=== PATIENT | female | born 1980 | race Caucasian/White ===

== ENCOUNTER 2016-11-13 11:24 | Emergency (ER) | payer OTHER ==
[~2016-11-13] VITALS: Ht 170.2 cm; Wt 200.6 kg
[~2016-11-13 11:24] MED LIST: CRESTOR5 MG PO; DAILY VITAMIN1 EAC8 PO; DILANTIN100 MG PO; FLEXERIL10 MG PO; GABITRIL4 MG PO; GLUCOPHAGE500 MG PO; HYDROCODON-ACE1 EAC7 PO; KEFLEX500 MG PO; KEPPRA1000 MG; KLONOPIN1 MG PO; Keppra PO; LAMICTAL XR200 MG PO; LAMICTAL100 MG PO; LAMICTAL150 M1 PO; LAMICTAL200 MG PO; LIPITOR10 MG PO; LIPITOR20 MG PO; LISINOPRIL10 MG PO; LISINOPRIL20 MG PO; LOPRESSOR100 M1 PO; LaMICtal PO; METFORMIN HCL500 MG PO; METOPROLOL PO; MONTELUKAST SOD10 MG PO; MOTRIN800 MG PO; NITROGLYCERIN0.4 MG SL; NORCO 5/3251 TABLET PO; NORETHINDRONE AC5 MG PO; NORTRIPTYLINE H50 MG PO; OMEPRAZOLE40 M1 PO; PEPCID20 MG PO; PERCOCET 5/31 TABLET PO; PREDNISONE20 MG PO; PROAIR HFA8.5 GM IH; SYNTHROID50 MCG PO; TESSALON PERLE100 MG PO; TOPAMAX50 MG PO; TOPROL XL100 MG PO; TROKENDI XR100 MG PO; TROKENDI XR50 MG PO; VITAMIN D PO; ZESTRIL,PRINIVI20 MG PO; ZESTRIL10 MG PO; ZITHROMAX250 MG PO; ZOFRAN ODT8 MG PO; ZYRTEC10 M2 PO
[2016-11-13 12:59] LABS: ADD MIUA? YES; BILIRUBIN NEGATIVE; BLOOD NEGATIVE; COLOR YELLOW ((YELLOW)); GLUCOSE (STRIP) NEGATIVE; KETONES NEGATIVE; LEUKOCYTES TRACE; NITRITE NEGATIVE; PROTEIN (STRIP) NEGATIVE; SPECIFIC GRAVITY 1.019 (1.000-1.030); UROBILINOGEN 0.2 MG/DL (0.2-1.0)
[2016-11-13 13:12] LABS: HEMATOCRIT 43.7 % (36.0-46.0); MCH 28.1 PG (29.0-34.0); MCV 85.4 FL (83-99); MEAN PLAT.VOLUME 10.2 uM^3 (9.5-12.4); PLATELET COUNT 165 K/uL (156-360); RBC DIS.WIDTH-SD 39.7 % (39-53); RED BLOOD COUNT 5.12 M/uL (3.80-5.20); WHITE BLOOD COUNT 4.5 K/uL (4.1-10.2)
[2016-11-13 13:13] LABS: BACTERIA NONE SEEN /HPF; EPITHELIAL CELLS 1+ /HPF; MUCUS TRACE /LPF; RED BLOOD CELLS 0-5 /HPF (0-5); UCUL ADDED? NO
[2016-11-13 13:29] LABS: CHLORIDE 106 mEq/L (99-109); POTASSIUM 4.4 mEq/L (3.7-5.4); SODIUM 140 mEq/L (136-147)
[2016-11-13 13:31] LABS: GLUCOSE 112 mg/dL (70-99)
[2016-11-13 13:32] LABS: ANION GAP 9 MEQ/L (2-14)
[2016-11-13 13:33] LABS: TOTAL BILIRUBIN 0.4 mg/dL (0.0-1.0)
[2016-11-13 13:34] LABS: ALKALINE PHOSPHATASE 98 IU/L (3-129)
[2016-11-13 13:35] LABS: GFR ESTIMATE (CALCULATED) > 59 mL/min/
[2016-11-13 13:36] LABS: UREA NITROGEN (BUN) 12 mg/dL (9-23)
[2016-11-13 13:44] LABS: QUANTITATIVE HCG < 4.0 MIU/ML
[2016-11-13 14:05] LABS: LIPASE 15 U/L (1.0-51.0)
[2016-11-13] MEDS ORDERED: ZOFRAN ODT4 MG PO (15:58)
[2016-11-13] MEDS ORDERED: NORCO 5/3251 TABLET PO (15:58)
[2016-11-13 16:46] VITALS: BP 167/84
== END 2016-11-13 16:47 | disposition home or self-care (01) ==
LOC: EME 11:24
DX: K80.20 Calculus of gallbladder without cholecystitis without obstruction (principal); E66.01 Morbid (severe) obesity due to excess calories; Z68.44 Body mass index [BMI] 60.0-69.9, adult; J45.909 Unspecified asthma, uncomplicated; E11.9 Type 2 diabetes mellitus without complications; E78.5 Hyperlipidemia, unspecified; I10 Essential (primary) hypertension; G40.909 Epilepsy, unspecified, not intractable, without status epilepticus; Z79.84 Long term (current) use of oral hypoglycemic drugs
CPT/HCPCS: 74177; 80053; 81003; 83690; 84702; 85027; 93005; 99281; 99285; J1885; J2405; J7030

== ENCOUNTER 2017-01-06 21:04 | Emergency (ER) | payer OTHER ==
[~2017-01-06] VITALS: Ht 170.2 cm; Wt 199.3 kg
[~2017-01-06 21:04] MED LIST changes: +ZOFRAN ODT4 MG PO
[2017-01-06 22:12] LABS: HEMATOCRIT 43.4 % (36.0-46.0); MCHC 31.8 G/DL (30.0-36.0); MEAN PLAT.VOLUME 9.9 uM^3 (9.5-12.4); PLATELET COUNT 185 K/uL (156-360); RBC DIS.WIDTH-CV 13.3 % (11.8-14.6); RBC DIS.WIDTH-SD 43.1 % (39-53); RED BLOOD COUNT 4.93 M/uL (3.80-5.20)
[2017-01-06 22:21] LABS: CHLORIDE 104 mEq/L (99-109); POTASSIUM 4.4 mEq/L (3.7-5.4); SODIUM 138 mEq/L (136-147)
[2017-01-06 22:23] LABS: GLUCOSE 108 mg/dL (70-99)
[2017-01-06 22:24] LABS: ANION GAP 10 MEQ/L (2-14)
[2017-01-06 22:25] LABS: TOTAL BILIRUBIN 0.3 mg/dL (0.0-1.0)
[2017-01-06 22:27] LABS: ALKALINE PHOSPHATASE 78 IU/L (3-129); GFR ESTIMATE (CALCULATED) > 59 mL/min/
[2017-01-06 22:28] LABS: UREA NITROGEN (BUN) 11 mg/dL (9-23)
[2017-01-06 22:30] LABS: LIPASE 27 U/L (1.0-51.0)
[2017-01-06 22:38] LABS: QUANTITATIVE HCG < 4.0 MIU/ML
[2017-01-07 00:31] LABS: ADD MIUA? YES; BILIRUBIN NEGATIVE; BLOOD NEGATIVE; COLOR YELLOW ((YELLOW)); GLUCOSE (STRIP) NEGATIVE; KETONES NEGATIVE; LEUKOCYTES MODERATE; NITRITE NEGATIVE; PROTEIN (STRIP) 30; SPECIFIC GRAVITY 1.028 (1.000-1.030); UROBILINOGEN 0.2 MG/DL (0.2-1.0)
[2017-01-07] MEDS ORDERED: ZOFRAN ODT4 MG PO (00:46)
[2017-01-07] MEDS ORDERED: NORCO 5/3251 TABLET PO (00:46)
[2017-01-07 00:47] LABS: EPITHELIAL CELLS 3+ /HPF; MUCUS RARE /LPF; RED BLOOD CELLS RARE /HPF (0-5); WHITE BLOOD CELLS 20-30 /HPF (0-5)
[2017-01-07 00:48] LABS: BACTERIA 2+ /HPF; CASTS NONE SEEN /LPF; CRYSTALS PRESENT; UCUL ADDED? YES
[2017-01-07 00:49] LABS: CALCIUM OXALATE CRYSTALS 1+ /HPF
[2017-01-07 01:09] VITALS: BP 116/59
== END 2017-01-07 01:14 | disposition home or self-care (01) ==
LOC: RME 21:04 → EME 21:04 → RME 01-07 01:14
DX: K80.20 Calculus of gallbladder without cholecystitis without obstruction (principal); K62.5 Hemorrhage of anus and rectum; J45.909 Unspecified asthma, uncomplicated; E11.9 Type 2 diabetes mellitus without complications; I10 Essential (primary) hypertension; Z79.84 Long term (current) use of oral hypoglycemic drugs; Z91.040 Latex allergy status
CPT/HCPCS: 76705; 80053; 81003; 83690; 84702; 85027; 87086; 99281; 99285

== ENCOUNTER 2017-01-10 19:49 | Emergency (ER) | payer OTHER ==
[~2017-01-10] VITALS: Ht 170.2 cm; Wt 196.6 kg
[2017-01-10 21:25] LABS: HEMATOCRIT 44.6 % (36.0-46.0); MCH 28.6 PG (29.0-34.0); MCHC 32.7 G/DL (30.0-36.0); MCV 87.3 FL (83-99); MEAN PLAT.VOLUME 9.7 uM^3 (9.5-12.4); PLATELET COUNT 179 K/uL (156-360); RBC DIS.WIDTH-CV 13.2 % (11.8-14.6); RBC DIS.WIDTH-SD 42.1 % (39-53); RED BLOOD COUNT 5.11 M/uL (3.80-5.20); WHITE BLOOD COUNT 6.3 K/uL (4.1-10.2)
[2017-01-10 21:35] LABS: CHLORIDE 102 mEq/L (99-109); POTASSIUM 4.6 mEq/L (3.7-5.4); SODIUM 140 mEq/L (136-147)
[2017-01-10 21:37] LABS: GLUCOSE 94 mg/dL (70-99)
[2017-01-10 21:38] LABS: ANION GAP 11 MEQ/L (2-14)
[2017-01-10 21:41] LABS: ALKALINE PHOSPHATASE 82 IU/L (3-129); GFR ESTIMATE (CALCULATED) > 59 mL/min/; TOTAL BILIRUBIN 0.5 mg/dL (0.0-1.0)
[2017-01-10 21:42] LABS: UREA NITROGEN (BUN) 8 mg/dL (9-23)
[2017-01-10 21:43] LABS: DIRECT BILIRUBIN 0.3 mg/dL (0.0-0.3)
[2017-01-10 21:44] LABS: LIPASE 13 U/L (1.0-51.0)
[2017-01-10] MEDS ORDERED: MIRALAX255 GM PO (22:15)
[2017-01-10 22:30] VITALS: BP 177/99
[2017-01-11] MEDS ORDERED: ATORVASTATIN CA20 MG PO (22:38)
[2017-01-11] MEDS ORDERED: TYLENOL EXTRA500 MG PO (22:38)
[2017-01-11] MEDS ORDERED: ONE-A-DAY ESSE1 EAC1 PO (22:38)
== END 2017-01-10 22:31 | disposition home or self-care (01) ==
LOC: EME 19:49
PROVIDERS: Emergency Medicine
DX: K59.00 Constipation, unspecified (principal); R10.84 Generalized abdominal pain; J45.909 Unspecified asthma, uncomplicated; E11.9 Type 2 diabetes mellitus without complications; E78.5 Hyperlipidemia, unspecified; I10 Essential (primary) hypertension; G40.909 Epilepsy, unspecified, not intractable, without status epilepticus; Z79.84 Long term (current) use of oral hypoglycemic drugs
CPT/HCPCS: 74176; 80048; 80076; 81003; 83690; 85027; 99281; 99284

== ENCOUNTER 2017-01-11 18:57 | Inpatient (IN) | payer OTHER ==
[~2017-01-11] VITALS: Ht 170.2 cm; Wt 196.0 kg
[~2017-01-11 18:57] MED LIST changes: +MIRALAX255 GM PO
[2017-01-11 20:44] LABS: HEMATOCRIT 43.8 % (36.0-46.0); MCH 28.9 PG (29.0-34.0); MCHC 33.3 G/DL (30.0-36.0); MCV 86.6 FL (83-99); MEAN PLAT.VOLUME 9.8 uM^3 (9.5-12.4); PLATELET COUNT 181 K/uL (156-360); RBC DIS.WIDTH-CV 13.1 % (11.8-14.6); RBC DIS.WIDTH-SD 40.4 % (39-53); RED BLOOD COUNT 5.06 M/uL (3.80-5.20)
[2017-01-11 20:54] LABS: CHLORIDE 102 mEq/L (99-109); SODIUM 136 mEq/L (136-147)
[2017-01-11 20:55] LABS: POTASSIUM 5.6 mEq/L (3.7-5.4)
[2017-01-11 20:56] LABS: GLUCOSE 100 mg/dL (70-99)
[2017-01-11 20:57] LABS: ANION GAP 11 MEQ/L (2-14)
[2017-01-11 20:59] LABS: ALKALINE PHOSPHATASE 84 IU/L (3-129); TOTAL BILIRUBIN 0.7 mg/dL (0.0-1.0)
[2017-01-11 21:00] LABS: GFR ESTIMATE (CALCULATED) > 59 mL/min/
[2017-01-11 21:01] LABS: UREA NITROGEN (BUN) 8 mg/dL (9-23)
[2017-01-11 21:03] LABS: LIPASE 8 U/L (1.0-51.0)
[2017-01-11 21:09] LABS: QUANTITATIVE HCG < 4.0 MIU/ML
[2017-01-11] MEDS ORDERED: ATORVASTATIN CA20 MG PO (22:38)
[2017-01-11] MEDS ORDERED: ONE-A-DAY ESSE1 EAC1 PO (22:38)
[2017-01-11] MEDS ORDERED: TYLENOL EXTRA500 MG PO (22:38)
[2017-01-12] VITALS (7 sets, daily range): BP systolic 101–145; BP diastolic 54–90
[2017-01-12 06:42] LABS: ADD MIUA? YES; BILIRUBIN NEGATIVE; BLOOD MODERATE; COLOR YELLOW ((YELLOW)); GLUCOSE (STRIP) NEGATIVE; KETONES NEGATIVE; LEUKOCYTES TRACE; NITRITE NEGATIVE; PROTEIN (STRIP) 30; SPECIFIC GRAVITY 1.014 (1.000-1.030); UROBILINOGEN 0.2 MG/DL (0.2-1.0)
[2017-01-12 08:22] LABS: EPITHELIAL CELLS 1+ /HPF; MUCUS 2+ /LPF; RED BLOOD CELLS 0-5 /HPF (0-5)
[2017-01-12 08:23] LABS: BACTERIA NONE SEEN /HPF; UCUL ADDED? NO
[2017-01-12 08:51] LABS: EOSINOPHIL (%) 0 % (0-5); HEMATOCRIT 39.9 % (36.0-46.0); IMMATURE GRANULOCYTE (%) 0.8 % (0.0-0.7); INSTRUMENT ABS NEUTROPHIL CT 3.3 K/uL; LYMPHOCYTE COUNT 1.6 K/uL (1.0-2.8); MCH 28.8 PG (29.0-34.0); MCHC 32.6 G/DL (30.0-36.0); MCV 88.5 FL (83-99); MEAN PLAT.VOLUME 9.6 uM^3 (9.5-12.4); MONOCYTE (%) 7.2 % (3-12); MONOCYTE COUNT 0.4 K/uL (0-0.8); NEUTROPHIL (%) 61.4 % (45-76); NEUTROPHIL COUNT 3.3 K/uL (1.8-6.4); PLATELET COUNT 160 K/uL (156-360); RBC DIS.WIDTH-CV 13.2 % (11.8-14.6); RBC DIS.WIDTH-SD 42.7 % (39-53); RED BLOOD COUNT 4.51 M/uL (3.80-5.20); WHITE BLOOD COUNT 5.3 K/uL (4.1-10.2)
[2017-01-12 09:10] LABS: ANION GAP 9 MEQ/L (2-14); CHLORIDE 102 MEQ/L (99-109); GFR ESTIMATE (CALCULATED) > 59 mL/min/; GLUCOSE 108 mg/dL (70-99); SAMPLE HEMOLYSIS CHECK 0; SAMPLE ICTERIC CHECK 0; SAMPLE LIPEMIA CHECK 0; SODIUM 139 MEQ/L (136-147); UREA NITROGEN (BUN) 12 mg/dL (9-23)
[2017-01-12 09:12] LABS: POTASSIUM 4.4 MEQ/L (3.7-5.4)
[2017-01-12 10:24] LABS: ALKALINE PHOSPHATASE 70 IU/L (3-129); DIRECT BILIRUBIN 0.2 mg/dL (0.0-0.3); TOTAL BILIRUBIN 0.6 MG/DL (0.0-1.0)
[2017-01-12] MEDS ORDERED: OMEPRAZOLE40 M1 PO (14:22)
[2017-01-12] MEDS ORDERED: COLACE100 MG PO (14:26)
[2017-01-12] MEDS ORDERED: DULCOLAX10 MG PO (14:26)
[2017-01-12 18:00] LABS: POINT-OF-CARE METER ID UU13113831
[2017-01-13 03:42] VITALS: BP 119/61
[2017-01-13 06:51] LABS: POINT-OF-CARE METER ID UU14162508
[2017-01-13 08:00] VITALS: BP 126/68
[2017-01-13 08:24] LABS: EOSINOPHIL (%) 0.2 % (0-5); IMMATURE GRANULOCYTE (%) 0.4 % (0.0-0.7); INSTRUMENT ABS NEUTROPHIL CT 2.5 K/uL; LYMPHOCYTE COUNT 1.8 K/uL (1.0-2.8); MCH 28.9 PG (29.0-34.0); MCHC 31.9 G/DL (30.0-36.0); MCV 90.7 FL (83-99); MEAN PLAT.VOLUME 9.6 uM^3 (9.5-12.4); MONOCYTE (%) 6.2 % (3-12); MONOCYTE COUNT 0.3 K/uL (0-0.8); NEUTROPHIL (%) 54.2 % (45-76); NEUTROPHIL COUNT 2.5 K/uL (1.8-6.4); PLATELET COUNT 136 K/uL (156-360); RBC DIS.WIDTH-CV 13.2 % (11.8-14.6); RBC DIS.WIDTH-SD 44.1 % (39-53); RED BLOOD COUNT 4.08 M/uL (3.80-5.20); WHITE BLOOD COUNT 4.5 K/uL (4.1-10.2)
[2017-01-13 08:47] LABS: ANION GAP 7 MEQ/L (2-14); CHLORIDE 107 MEQ/L (99-109); GFR ESTIMATE (CALCULATED) > 59 mL/min/; GLUCOSE 91 mg/dL (70-99); POTASSIUM 4.2 MEQ/L (3.7-5.4); SAMPLE HEMOLYSIS CHECK 0; SAMPLE ICTERIC CHECK 0; SAMPLE LIPEMIA CHECK 0; SODIUM 142 MEQ/L (136-147); UREA NITROGEN (BUN) 11 mg/dL (9-23)
[2017-01-13 10:01] LABS: QUANTITATIVE HCG < 4.0 MIU/ML
[2017-01-13 16:00] VITALS: BP 116/67
[2017-01-13 21:19] LABS: POINT-OF-CARE METER ID UU14162508
[2017-01-14] VITALS: BP 119/56
[2017-01-14 06:28] LABS: POINT-OF-CARE METER ID UU14162508
[2017-01-14 08:36] VITALS: BP 108/59
[2017-01-14 16:23] VITALS: BP 127/56
[2017-01-14 23:32] VITALS: BP 125/65
[2017-01-15 06:38] LABS: POINT-OF-CARE METER ID UU14162508
[2017-01-15 07:45] VITALS: BP 129/75
[2017-01-15 15:45] VITALS: BP 122/65
[2017-01-15 20:49] VITALS: BP 118/57
[2017-01-16 00:21] VITALS: BP 148/80
[2017-01-16 07:42] VITALS: BP 106/55
[2017-01-16 11:24] VITALS: BP 107/56
[2017-01-16 12:30] LABS: POINT-OF-CARE METER ID UU14162508
[2017-01-16 15:50] VITALS: BP 103/54
[2017-01-16 17:19] LABS: POINT-OF-CARE METER ID UU14162508
[2017-01-16 21:25] LABS: POINT-OF-CARE METER ID UU14162508
[2017-01-16 23:53] VITALS: BP 104/71
[2017-01-17 00:50] LABS: C DIFF TOXIN NEGATIVE (NEGATIVE)
[2017-01-17 00:57] LABS: PROBE CHECK PASS; SPECIMEN PROCESSING CONTROL PASS
[2017-01-17 07:21] LABS: EOSINOPHIL (%) 0 % (0-5); HEMATOCRIT 34.6 % (36.0-46.0); IMMATURE GRANULOCYTE (%) 0.7 % (0.0-0.7); INSTRUMENT ABS NEUTROPHIL CT 1.5 K/uL; LYMPHOCYTE COUNT 1.2 K/uL (1.0-2.8); MCH 28.6 PG (29.0-34.0); MCHC 32.4 G/DL (30.0-36.0); MCV 88.3 FL (83-99); MEAN PLAT.VOLUME 10.1 uM^3 (9.5-12.4); MONOCYTE (%) 4.3 % (3-12); MONOCYTE COUNT 0.1 K/uL (0-0.8); NEUTROPHIL (%) 53.5 % (45-76); NEUTROPHIL COUNT 1.5 K/uL (1.8-6.4); PLATELET COUNT 139 K/uL (156-360); RBC DIS.WIDTH-CV 13.5 % (11.8-14.6); RBC DIS.WIDTH-SD 42.6 % (39-53); RED BLOOD COUNT 3.92 M/uL (3.80-5.20)
[2017-01-17 07:22] LABS: WHITE BLOOD COUNT 2.8 K/uL (4.1-10.2)
[2017-01-17 07:44] VITALS: BP 100/66
[2017-01-17 08:48] LABS: ANION GAP 6 MEQ/L (2-14); CHLORIDE 109 MEQ/L (99-109); GFR ESTIMATE (CALCULATED) > 59 mL/min/; GLUCOSE 85 mg/dL (70-99); POTASSIUM 3.8 MEQ/L (3.7-5.4); SAMPLE HEMOLYSIS CHECK 0; SAMPLE ICTERIC CHECK 0; SAMPLE LIPEMIA CHECK 0; SODIUM 142 MEQ/L (136-147); UREA NITROGEN (BUN) 4 mg/dL (9-23)
[2017-01-17 10:56] VITALS: BP 118/71
[2017-01-17 16:00] VITALS: BP 120/77
[2017-01-17 19:23] VITALS: BP 153/72
[2017-01-17 21:36] LABS: POINT-OF-CARE METER ID UU14162508
[2017-01-17 23:49] VITALS: BP 148/70
[2017-01-18 06:26] LABS: EOSINOPHIL (%) 0 % (0-5); HEMATOCRIT 33.4 % (36.0-46.0); INSTRUMENT ABS NEUTROPHIL CT 1.8 K/uL; LYMPHOCYTE COUNT 1.2 K/uL (1.0-2.8); MCH 28.2 PG (29.0-34.0); MCHC 31.7 G/DL (30.0-36.0); MCV 88.8 FL (83-99); MEAN PLAT.VOLUME 10.6 uM^3 (9.5-12.4); MONOCYTE (%) 5.4 % (3-12); MONOCYTE COUNT 0.2 K/uL (0-0.8); NEUTROPHIL (%) 56.2 % (45-76); NEUTROPHIL COUNT 1.8 K/uL (1.8-6.4); PLATELET COUNT 124 K/uL (156-360); RBC DIS.WIDTH-CV 13.6 % (11.8-14.6); RBC DIS.WIDTH-SD 43.7 % (39-53); RED BLOOD COUNT 3.76 M/uL (3.80-5.20); WHITE BLOOD COUNT 3.1 K/uL (4.1-10.2)
[2017-01-18 06:32] LABS: POINT-OF-CARE METER ID UU14162508
[2017-01-18 07:01] LABS: ANION GAP 7 MEQ/L (2-14); CHLORIDE 109 MEQ/L (99-109); GFR ESTIMATE (CALCULATED) > 59 mL/min/; GLUCOSE 81 mg/dL (70-99); POTASSIUM 3.8 MEQ/L (3.7-5.4); SAMPLE HEMOLYSIS CHECK 0; SAMPLE ICTERIC CHECK 0; SAMPLE LIPEMIA CHECK 0; SODIUM 141 MEQ/L (136-147); UREA NITROGEN (BUN) 3 mg/dL (9-23)
[2017-01-18 10:01] VITALS: BP 134/78
[2017-01-18 16:20] VITALS: BP 135/76
[2017-01-18 19:51] VITALS: BP 129/67
[2017-01-18 23:50] VITALS: BP 125/65
[2017-01-19 06:39] LABS: POINT-OF-CARE METER ID UU14162508
[2017-01-19 07:30] VITALS: BP 135/75
[2017-01-19 11:46] LABS: POINT-OF-CARE METER ID UU14162508
[2017-01-19 16:14] VITALS: BP 132/69
[2017-01-19 16:27] LABS: POINT-OF-CARE METER ID UU14162508
[2017-01-19 23:06] VITALS: BP 142/76
[2017-01-20 03:10] VITALS: BP 121/58
[2017-01-20 07:05] VITALS: BP 126/67
[2017-01-20 07:26] LABS: POINT-OF-CARE METER ID UU14162508
[2017-01-20 11:25] VITALS: BP 131/73
[2017-01-20 14:55] VITALS: BP 133/77
[2017-01-21 00:30] VITALS: BP 142/70
[2017-01-21 07:17] LABS: EOSINOPHIL (%) 0 % (0-5); HEMATOCRIT 33.5 % (36.0-46.0); IMMATURE GRANULOCYTE (%) 0.6 % (0.0-0.7); INSTRUMENT ABS NEUTROPHIL CT 1.9 K/uL; MCH 28.5 PG (29.0-34.0); MCHC 32.2 G/DL (30.0-36.0); MCV 88.4 FL (83-99); MEAN PLAT.VOLUME 9.9 uM^3 (9.5-12.4); MONOCYTE (%) 7.1 % (3-12); MONOCYTE COUNT 0.2 K/uL (0-0.8); NEUTROPHIL (%) 61.1 % (45-76); NEUTROPHIL COUNT 1.9 K/uL (1.8-6.4); PLATELET COUNT 133 K/uL (156-360); RBC DIS.WIDTH-CV 13.8 % (11.8-14.6); RBC DIS.WIDTH-SD 43.6 % (39-53); RED BLOOD COUNT 3.79 M/uL (3.80-5.20); WHITE BLOOD COUNT 3.1 K/uL (4.1-10.2)
[2017-01-21 07:43] LABS: ANION GAP 7 MEQ/L (2-14); CHLORIDE 108 MEQ/L (99-109); GFR ESTIMATE (CALCULATED) > 59 mL/min/; GLUCOSE 89 mg/dL (70-99); POTASSIUM 3.8 MEQ/L (3.7-5.4); SAMPLE HEMOLYSIS CHECK 0; SAMPLE ICTERIC CHECK 0; SAMPLE LIPEMIA CHECK 0; SODIUM 143 MEQ/L (136-147); UREA NITROGEN (BUN) 3 mg/dL (9-23)
[2017-01-21 07:47] VITALS: BP 138/78
[2017-01-21 10:30] VITALS: BP 133/60
[2017-01-21 15:37] LABS: POINT-OF-CARE METER ID UU13113675
[2017-01-21 17:05] VITALS: BP 172/84
[2017-01-21 19:32] VITALS: BP 163/80
[2017-01-21 23:28] VITALS: BP 168/83
[2017-01-22 04:06] VITALS: BP 160/81
[2017-01-22 07:00] VITALS: BP 154/79
[2017-01-22 10:28] LABS: EOSINOPHIL (%) 0 % (0-5); HEMATOCRIT 35.5 % (36.0-46.0); IMMATURE GRANULOCYTE (%) 0.4 % (0.0-0.7); INSTRUMENT ABS NEUTROPHIL CT 3.3 K/uL; MCH 28.6 PG (29.0-34.0); MCHC 32.7 G/DL (30.0-36.0); MCV 87.4 FL (83-99); MEAN PLAT.VOLUME 10.4 uM^3 (9.5-12.4); MONOCYTE (%) 6.3 % (3-12); MONOCYTE COUNT 0.3 K/uL (0-0.8); NEUTROPHIL (%) 72.1 % (45-76); NEUTROPHIL COUNT 3.3 K/uL (1.8-6.4); PLATELET COUNT 158 K/uL (156-360); RBC DIS.WIDTH-CV 14.1 % (11.8-14.6); RBC DIS.WIDTH-SD 43.4 % (39-53); RED BLOOD COUNT 4.06 M/uL (3.80-5.20)
[2017-01-22 10:32] LABS: WHITE BLOOD COUNT 4.6 K/uL (4.1-10.2)
[2017-01-22 10:49] LABS: ALKALINE PHOSPHATASE 55 IU/L (3-129); ANION GAP 8 MEQ/L (2-14); CHLORIDE 108 MEQ/L (99-109); GFR ESTIMATE (CALCULATED) > 59 mL/min/; GLUCOSE 97 mg/dL (70-99); MAGNESIUM 1.7 mg/dl (1.3-2.7); SAMPLE HEMOLYSIS CHECK 0; SAMPLE ICTERIC CHECK 0; SAMPLE LIPEMIA CHECK 0; SODIUM 143 MEQ/L (136-147); TOTAL BILIRUBIN 0.5 MG/DL (0.0-1.0); UREA NITROGEN (BUN) 3 mg/dL (9-23)
[2017-01-22 11:58] LABS: POINT-OF-CARE METER ID UU14162508
[2017-01-22 12:07] VITALS: BP 144/71
[2017-01-22 16:11] VITALS: BP 139/65
[2017-01-22 19:33] VITALS: BP 146/78
[2017-01-22 23:29] VITALS: BP 142/80
[2017-01-23 04:09] VITALS: BP 143/68
[2017-01-23 07:20] VITALS: BP 127/66
[2017-01-23 11:26] LABS: POINT-OF-CARE METER ID UU14162508
[2017-01-23 16:15] VITALS: BP 141/96
[2017-01-23 16:54] LABS: POINT-OF-CARE METER ID UU14162508
[2017-01-23 20:07] VITALS: BP 133/64
[2017-01-24 00:38] VITALS: BP 130/71
[2017-01-24 04:41] VITALS: BP 129/69
[2017-01-24 06:43] LABS: POINT-OF-CARE METER ID UU14162508
[2017-01-24 07:00] VITALS: BP 128/78
[2017-01-24 11:00] VITALS: BP 125/65
[2017-01-24 11:58] LABS: POINT-OF-CARE METER ID UU14162508
[2017-01-24 15:00] VITALS: BP 125/65
[2017-01-24 16:06] LABS: POINT-OF-CARE METER ID UU14162508
[2017-01-24 16:10] VITALS: BP 125/65
[2017-01-24] MEDS ORDERED: MAG-AL PLUS SUS30 ML PO (16:46)
[2017-01-24] MEDS ORDERED: PANTOPRAZOLE SO40 MG PO (16:48)
[2017-01-24] MEDS ORDERED: NORCO 5/3251 TABLET PO (17:02)
== END 2017-01-24 18:51 | disposition home or self-care (01) | DRG 418 ==
LOC: EME 18:57 → EDOF 22:33 → 5WEST 23:44 → 2EAST 01-12 14:43 → 5WEST 01-12 14:43 → 2EAST 01-12 19:29
PROVIDERS: Family Medicine; Family Medicine Sports Medicine; Hospitalist; Physician Assistant Medical; Surgery
PROC: 0FT44ZZ Resection of Gallbladder, Percutaneous Endoscopic Approach (ICD-10-PCS; principal; 2017-01-21)
DX: K80.00 Calculus of gallbladder with acute cholecystitis without obstruction (principal); K82.1 Hydrops of gallbladder; G47.33 Obstructive sleep apnea (adult) (pediatric); J45.909 Unspecified asthma, uncomplicated; I10 Essential (primary) hypertension; E11.9 Type 2 diabetes mellitus without complications; E78.5 Hyperlipidemia, unspecified; G40.909 Epilepsy, unspecified, not intractable, without status epilepticus; E66.01 Morbid (severe) obesity due to excess calories; E03.9 Hypothyroidism, unspecified; G43.909 Migraine, unspecified, not intractable, without status migrainosus; K76.0 Fatty (change of) liver, not elsewhere classified; L68.0 Hirsutism; K59.00 Constipation, unspecified; Z68.44 Body mass index [BMI] 60.0-69.9, adult; Z91.040 Latex allergy status; Z87.891 Personal history of nicotine dependence; Z75.1 Person awaiting admission to adequate facility elsewhere; Z79.84 Long term (current) use of oral hypoglycemic drugs
CPT/HCPCS: 74176; 76700; 78227; 80048; 80053; 80076; 81003; 82948; 83690; 83735; 84100; 84702; 85025; 85027; 87493; 88304; 94002; 99281; 99284; 99285; A9537; C9113; G0378; J0330; J1170; J1200; J1650; J1815; J1885; J2270; J2405; J2765; J3010; J7030

== ENCOUNTER 2017-12-13 16:13 | Emergency (ER) | payer OTHER ==
[~2017-12-13] VITALS: Ht 170.2 cm; Wt 213.7 kg
[~2017-12-13 16:13] MED LIST changes: +ATORVASTATIN CA20 MG PO; +COLACE100 MG PO; +DULCOLAX10 MG PO; +MAG-AL PLUS SUS30 ML PO; +ONE-A-DAY ESSE1 EAC1 PO; +PANTOPRAZOLE SO40 MG PO; +TYLENOL EXTRA500 MG PO
[2017-12-13 17:14] VITALS: BP 164/101
== END 2017-12-13 17:15 | disposition home or self-care (01) ==
LOC: EME 16:13
DX: G43.909 Migraine, unspecified, not intractable, without status migrainosus (principal); I10 Essential (primary) hypertension; E78.5 Hyperlipidemia, unspecified; E11.9 Type 2 diabetes mellitus without complications; J45.909 Unspecified asthma, uncomplicated; E66.01 Morbid (severe) obesity due to excess calories; Z68.45 Body mass index [BMI] 70 or greater, adult; G40.909 Epilepsy, unspecified, not intractable, without status epilepticus; Z87.891 Personal history of nicotine dependence; Z79.84 Long term (current) use of oral hypoglycemic drugs; Z91.040 Latex allergy status
CPT/HCPCS: 99281; 99284; J1885

== ENCOUNTER 2018-01-30 16:22 | Emergency (ER) | payer OTHER ==
[~2018-01-30] VITALS: Ht 170.2 cm; Wt 218.3 kg
[2018-01-30] MEDS ORDERED: FIORICET 50-301 EAC1 PO (18:09)
[2018-01-30 18:19] VITALS: BP 152/98
== END 2018-01-30 18:22 | disposition home or self-care (01) ==
LOC: EME 16:22
DX: R51 Headache (principal); R11.2 Nausea with vomiting, unspecified; H53.149 Visual discomfort, unspecified; I10 Essential (primary) hypertension; E78.5 Hyperlipidemia, unspecified; E11.9 Type 2 diabetes mellitus without complications; Z79.84 Long term (current) use of oral hypoglycemic drugs; E66.01 Morbid (severe) obesity due to excess calories; Z68.45 Body mass index [BMI] 70 or greater, adult; Z90.49 Acquired absence of other specified parts of digestive tract; Z87.891 Personal history of nicotine dependence
CPT/HCPCS: 82948; 99281; 99285; J0780; J1885; J7030

== ENCOUNTER 2018-03-04 12:35 | Inpatient (IN) | payer OTHER ==
[~2018-03-04] VITALS: Ht 170.2 cm; Wt 218.7 kg
[~2018-03-04 12:35] MED LIST changes: +FIORICET 50-301 EAC1 PO
[2018-03-04 13:20] LABS: BASOPHIL (%) 0 % (0-1); EOSINOPHIL (%) 0 % (0-5); HEMATOCRIT 41.6 % (36.0-46.0); HEMOGLOBIN 13.6 G/DL (11.9-15.5); IMMATURE GRANULOCYTE (%) 1.1 % (0.0-0.7); LYMPHOCYTE (%) 22.8 % (15-42); LYMPHOCYTE COUNT 1.3 K/uL (1.0-2.8); MCH 28.5 PG (29.0-34.0); MCHC 32.7 G/DL (30.0-36.0); MONOCYTE (%) 4.8 % (3-12); MONOCYTE COUNT 0.3 K/uL (0-0.8); NEUTROPHIL (%) 71.3 % (45-76); RBC DIS.WIDTH-SD 41.1 % (39-53); RED BLOOD COUNT 4.78 M/uL (3.80-5.20); WHITE BLOOD COUNT 5.6 K/uL (4.1-10.2)
[2018-03-04 13:30] LABS: CHLORIDE 100 mEq/L (99-109); POTASSIUM 4.6 mEq/L (3.7-5.4); SODIUM 137 mEq/L (136-147)
[2018-03-04 13:31] LABS: GLUCOSE 115 mg/dL (70-99)
[2018-03-04 13:35] LABS: CREATININE 0.7 mg/dL (0.6-1.3); GFR ESTIMATE (CALCULATED) > 59 mL/min/
[2018-03-04 13:36] LABS: UREA NITROGEN (BUN) 10 mg/dL (9-23)
[2018-03-04 13:59] LABS: PLATELET CLUMPS PRESENT - PLATELET COUNT APPEARS ADQ.; PLATELET COUNT UNABLE TO REPORT K/uL (156-360)
[2018-03-04] MEDS ORDERED: BELSOMRA20 MG PO (15:15)
[2018-03-04] MEDS ORDERED: VENLAFAXINE225 MG PO (15:16)
[2018-03-04] MEDS ORDERED: NABUMETONE500 MG PO (15:16)
[2018-03-04] MEDS ORDERED: CETIRIZINE HCL10 M2 PO (15:17)
[2018-03-04] MEDS ORDERED: ADVIL,NUPRIN,M200 MG PO (15:17)
[2018-03-04 15:56] LABS: TROP-I INTERPRETATION NEGATIVE; TROPONIN-I < 0.01 ng/mL (0.0-0.30)
[2018-03-04 16:20] VITALS: BP 176/84
[2018-03-04 19:08] VITALS: BP 143/81
[2018-03-04 21:45] LABS: TROP-I INTERPRETATION NEGATIVE; TROPONIN-I 0.02 ng/mL (0.0-0.30)
[2018-03-05 00:25] LABS: APPEARANCE CLOUDY ((CLEAR)); BILIRUBIN NEGATIVE; BLOOD NEGATIVE; COLOR AMBER ((YELLOW)); GLUCOSE (STRIP) NEGATIVE; KETONES 5; LEUKOCYTES SMALL; NITRITE POSITIVE; PROTEIN (STRIP) 30; SPECIFIC GRAVITY 1.029 (1.000-1.030)
[2018-03-05 00:29] LABS: BACTERIA 3+ /HPF; EPITHELIAL CELLS 1+ /HPF; MUCUS 1+ /LPF; RED BLOOD CELLS 0-5 /HPF (0-5); UCUL ADDED? YES; WHITE BLOOD CELLS 20-30 /HPF (0-5)
[2018-03-05 00:41] VITALS: BP 130/73
[2018-03-05 03:26] LABS: BASOPHIL (%) 0.2 % (0-1); EOSINOPHIL (%) 0 % (0-5); HEMATOCRIT 36.7 % (36.0-46.0); HEMOGLOBIN 11.9 G/DL (11.9-15.5); IMMATURE GRANULOCYTE (%) 1.1 % (0.0-0.7); LYMPHOCYTE (%) 33.8 % (15-42); LYMPHOCYTE COUNT 1.6 K/uL (1.0-2.8); MCH 28.5 PG (29.0-34.0); MCHC 32.4 G/DL (30.0-36.0); MONOCYTE (%) 6.2 % (3-12); MONOCYTE COUNT 0.3 K/uL (0-0.8); NEUTROPHIL (%) 58.7 % (45-76); NEUTROPHIL COUNT 2.8 K/uL (1.8-6.4); RBC DIS.WIDTH-CV 13.2 % (11.8-14.6); RBC DIS.WIDTH-SD 42.7 % (39-53); RED BLOOD COUNT 4.17 M/uL (3.80-5.20); WHITE BLOOD COUNT 4.7 K/uL (4.1-10.2)
[2018-03-05 03:30] LABS: PLATELET COUNT 148 K/uL (156-360)
[2018-03-05 03:36] LABS: ALBUMIN 3.5 g/dL (3.2-4.8); CHLORIDE 101 mEq/L (99-109); POTASSIUM 4.4 mEq/L (3.7-5.4); SODIUM 140 mEq/L (136-147)
[2018-03-05 03:39] LABS: GLUCOSE 100 mg/dL (70-99); TOTAL PROTEIN 5.9 g/dL (6.4-8.3)
[2018-03-05 03:40] LABS: TOTAL BILIRUBIN 0.7 mg/dL (0.0-1.0)
[2018-03-05 03:42] LABS: ALKALINE PHOSPHATASE 86 IU/L (3-129); CREATININE 0.7 mg/dL (0.6-1.3); GFR ESTIMATE (CALCULATED) > 59 mL/min/
[2018-03-05 03:43] LABS: UREA NITROGEN (BUN) 9 mg/dL (9-23)
[2018-03-05 03:44] LABS: AST (GOT) 32 IU/L (2-34); DIRECT BILIRUBIN 0.3 mg/dL (0.0-0.3)
[2018-03-05 03:45] LABS: ALT (GPT) 26 IU/L (3-49); TROP-I INTERPRETATION NEGATIVE; TROPONIN-I < 0.01 ng/mL (0.0-0.30)
[2018-03-05 03:49] VITALS: BP 134/70
[2018-03-05 06:22] LABS: BENZODIAZEPINES, URINE SCREEN Negative (200 ng/mL)
[2018-03-05 08:21] VITALS: BP 152/72
[2018-03-05 12:00] VITALS: BP 127/69
[2018-03-05 15:53] LABS: LIPASE 22 U/L (1.0-51.0)
[2018-03-05 16:33] VITALS: BP 148/81
[2018-03-06 00:15] VITALS: BP 127/57
[2018-03-06 03:57] VITALS: BP 123/60
[2018-03-06 05:05] LABS: BASOPHIL (%) 0.2 % (0-1); EOSINOPHIL (%) 0 % (0-5); HEMATOCRIT 36.8 % (36.0-46.0); HEMOGLOBIN 11.4 G/DL (11.9-15.5); IMMATURE GRANULOCYTE (%) 0.9 % (0.0-0.7); LYMPHOCYTE (%) 31.6 % (15-42); LYMPHOCYTE COUNT 1.5 K/uL (1.0-2.8); MCV 90.4 FL (83-99); MONOCYTE (%) 7.2 % (3-12); MONOCYTE COUNT 0.3 K/uL (0-0.8); NEUTROPHIL (%) 60.1 % (45-76); NEUTROPHIL COUNT 2.8 K/uL (1.8-6.4); PLATELET COUNT 141 K/uL (156-360); RBC DIS.WIDTH-CV 13.2 % (11.8-14.6); RBC DIS.WIDTH-SD 43.4 % (39-53); RED BLOOD COUNT 4.07 M/uL (3.80-5.20); WHITE BLOOD COUNT 4.7 K/uL (4.1-10.2)
[2018-03-06 05:31] LABS: CHLORIDE 103 MEQ/L (99-109); CREATININE 0.7 MG/DL (0.6-1.3); GFR ESTIMATE (CALCULATED) > 59 mL/min/; GLUCOSE 87 mg/dL (70-99); MAGNESIUM 2.1 mg/dl (1.3-2.7); POTASSIUM 3.7 MEQ/L (3.7-5.4); SODIUM 138 MEQ/L (136-147); UREA NITROGEN (BUN) 7 mg/dL (9-23)
[2018-03-06 08:52] VITALS: BP 130/73
[2018-03-06] MEDS ORDERED: CEFTIN500 MG PO (11:06)
[2018-03-06 11:15] VITALS: BP 127/75
== END 2018-03-06 13:00 | disposition home or self-care (01) | DRG 101 ==
LOC: EME 12:35 → EDOF 14:38 → 4SOUTH 14:38 → ENRESERV 14:45 → 4SOUTH 15:52 → ENPENDDIS 03-06 → 4SOUTH 03-06 13:00
PROVIDERS: Emergency Medicine; Hospitalist; Physician Assistant
DX: G40.909 Epilepsy, unspecified, not intractable, without status epilepticus (principal); R55 Syncope and collapse; T42.6X6A Underdosing of other antiepileptic and sedative-hypnotic drugs, initial encounter; Z91.128 Patient's intentional underdosing of medication regimen for other reason; G43.009 Migraine without aura, not intractable, without status migrainosus; E86.0 Dehydration; R11.2 Nausea with vomiting, unspecified; R19.7 Diarrhea, unspecified; D69.6 Thrombocytopenia, unspecified; E11.9 Type 2 diabetes mellitus without complications; E66.01 Morbid (severe) obesity due to excess calories; Z68.45 Body mass index [BMI] 70 or greater, adult; I10 Essential (primary) hypertension; J45.909 Unspecified asthma, uncomplicated; E03.9 Hypothyroidism, unspecified; E78.5 Hyperlipidemia, unspecified; N92.6 Irregular menstruation, unspecified; Z87.891 Personal history of nicotine dependence
CPT/HCPCS: 80048; 80076; 80306 90; 81003; 83690; 83735; 84484; 85025; 87077; 87086; 87186; 93005; 99281; 99285; G0378; J0696; J1644; J1885; J2405; J2765; J7030